=== PATIENT | female | born 1985 | race African-American/Black ===

== ENCOUNTER 2017-11-24 01:02 | Emergency (ER) | payer MEDICAID, OTHER ==
[~2017-11-24] VITALS: Ht 167.6 cm; Wt 126.0 kg
[2017-11-24 02:37] VITALS: BP 120/69
== END 2017-11-24 04:55 | disposition home or self-care (01) ==
LOC: ER 01:02
DX: N92.6 Irregular menstruation, unspecified (principal); Z32.01 Encounter for pregnancy test, result positive; F17.200 Nicotine dependence, unspecified, uncomplicated; F12.10 Cannabis abuse, uncomplicated
CPT/HCPCS: 36415; 84702; 99283; Z7610

== ENCOUNTER 2019-02-25 10:19 | Emergency (ER) | payer MEDICAID, OTHER ==
[~2019-02-25] VITALS: Ht 167.6 cm; Wt 82.2 kg
[2019-02-25 10:50] VITALS: BP 155/67
[2019-02-25] MEDS ORDERED: KETOROLAC 60MG/2ML VIAL IM ONE (11:15)
[2019-02-25] MEDS ORDERED: DIAZEPAM 5 MG TABLET PO ONE (11:15)
== END 2019-02-25 12:02 | disposition home or self-care (01) ==
LOC: ER 10:35
DX: M54.5 Low back pain (principal); M54.30 Sciatica, unspecified side; F17.200 Nicotine dependence, unspecified, uncomplicated; Z71.6 Tobacco abuse counseling
CPT/HCPCS: 81025; 96372; 99283; 99406; J1885; Z7610

== ENCOUNTER 2021-03-17 13:13 | Emergency (ER) | payer MEDICAID ==
[~2021-03-17] VITALS: Ht 167.6 cm; Wt 77.0 kg
[~2021-03-17 13:13] MED LIST: IBUP-2030 PO; LABE200T9 PO; PREN-176 PO
[2021-03-17 18:26] VITALS: BP 135/67
== END 2021-03-17 18:27 | disposition home or self-care (01) ==
LOC: ER 13:13
DX: U07.1 COVID-19 (principal); Z98.890 Other specified postprocedural states; Z88.0 Allergy status to penicillin
CPT/HCPCS: 87426; 99283